=== PATIENT | female | born 2000 | race Caucasian/White ===

== ENCOUNTER 2024-01-09 06:04 | Inpatient (IN) ==
[2024-01-09] MEDS ORDERED: OXYTOCIN 30 UNITS/NSS 30 UNITS/500 ML BAG IV PRN (06:53)
[2024-01-09] MEDS ORDERED: LIDOCAINE 1% LOCAL 20 ML VIAL INFIL PRN (06:53)
[2024-01-09] MEDS ORDERED: ACETAMINOPHEN 325 MG TAB PO PRN (06:53)
[2024-01-09] MEDS ORDERED: CALCIUM CARBONATE 500 MG CHEWABLE TAB PO PRN (06:53)
--- NOTE | 2024-01-09 07:02 | History & Physical Report ---
Date of Service January 09, 2024 Assessment & Plan (1) Supervision of normal first : Plan: Primip at 37 4/7 weeks with documented SPROM and active labor start PCN G prophylaxis epidural when requested anticipate vaginal History of Present Illness Primary Care Provider: NO PCP Patient is a 23 yo female EDC 01/26/24 who presents at 37 4/7 weeks with SPROM and onset of labor. fluid was clear. complicated by (+) GBS status. she was also measuring size greater than dates and had growth scan at 36 weeks with an EFW of 78% and AC 81%. otherwise no other issues during . Allergies Allergy/AdvReac Type Severity Reaction Status Date / Time No Known Allergies Allergy Verified 01/09/24 06:21 Home Medications Medication Instructions Recorded Confirmed Type breast pump #1 ea 11/25/23 01/05/24 Rx vits no.124-ferrous fum 1 tab PO DAILY 01/09/24 01/09/24 History 27 mg iron-folic acid 800 mcg tablet ( Vitamin) Patient History Medical History Varicella vaccine Family History Denies family history of Ovarian cancer Prostate cancer Myocardial infarction Breast cancer Colorectal cancer Social History Smoking Status: Never smoker Do You Dip or Chew Tobacco: No; Hx Alcohol Use: No Hx Substance Use: No Preferred Language: [place]ian Communication Ability: Effective Production Control Supervisor Required: No Beliefs That Will Affect Care: None marital status: marital status details: Odilon Carpenter (30) [phone] Current Living Situation: Spouse Current Living Situation Comment: lives with spouse, no pets current occupational status: unemployed Other Information That Helps Us Care for You: No Feels Safe at Home: Yes Review of Systems All systems reviewed & are unremarkable except as noted in HPI & below Physical Exam Constitutional: WD/WN, vitals as above Psychiatric: A+Ox3, euthymic affect Genitourinary: OB Exam Abdomen: + vertex and + regular contractions (Q 3minutes) Manual OB Exam: + cervical dilation 3 cm, + cervical effacement 80%, + station -1 and + amniotic fluid (grossly ruptured) clear OB Exam Monitor Tracing: + external FHT monitor used, + external uterine monitor used, + category I and + normal FHT variability cervical exam by Mary Kay Anderson RN Results & Data Vital Signs (Past 12 Hours) Vital Signs Temp Pulse Resp BP 01/09/24 06:20 18 01/09/24 06:20 98.2 F 109 H 18 129/85 Code Status & VTE Plan VTE Prophylaxis Plan VTE Prophylaxis will be ordered: No Coding Level of Care Code 82842 INT INP/OBS CARE MIN Diagnoses Encounter for supervision of normal first in third trimester Z34.03 Trimester: third trimester (1) Supervision of normal first Trimester: third trimester Qualified Code(s): Z34.03 - Encounter for supervision of normal first , third trimester
[2024-01-09 07:30] LABS: Hematocrit (blood only) 35.7 % (37.0-47.0); Hemoglobin 12.1 g/dl (12.0-16.0); Mean Corpuscular Hemoglobin 29.6 pg (25.0-34.0); Mean Corpuscular Hgb Conc 33.9 g/dL (32.0-36.0); Mean Corpuscular Volume 87.3 fL (80.0-100.0); Mean Platelet Volume 9.6 fL (9.4-12.4); Platelet Count 190 K/uL (130-400); RDW Standard Deviation 40.5 fL (36.4-46.3); Red Blood Count 4.09 M/uL (4.20-5.40); White Blood Count 8.17 K/ul (4.8-10.8)
[2024-01-09] MEDS: LACTATED RINGER'S 1,000 ML IV PRN (07:43)
[2024-01-09] MEDS: PENICILLIN GK 6 MU in DEXTROSE 5% 250 ML IV STA (07:45)
[2024-01-09] MEDS: PENICILLIN GK 3 MU in DEXTROSE 5% 100 ML IV PRN (11:41)
--- NOTE | 2024-01-09 16:14 | Labor Progress Brief Note ---
Date of Service January 09, 2024 Subjective FHT Cat 1 [place] spaced SVE 5-6cm per RN Pt agreeable to start pitocin. Assessment & Plan Admission and Anticipated Discharge Date Admission Date: January 09, 2024 Results & Data Vital Signs (Past 12 Hours) Vital Signs Temp Pulse Resp BP 01/09/24 15:18 20 01/09/24 15:18 37.0 C 01/09/24 14:47 99 H 116/63 01/09/24 13:19 01/09/24 13:19 37.0 C 01/09/24 11:42 01/09/24 11:42 36.8 C 01/09/24 10:27 112 H 131/70 01/09/24 09:24 18 01/09/24 09:24 36.9 C 01/09/24 07:26 36.8 C 107 H 18 117/72 01/09/24 06:20 18 01/09/24 06:20 36.8 C 109 H 18 129/85 Coding Level of Care Code None
[2024-01-09] MEDS: OXYTOCIN 30 UNITS/NSS 30 UNITS/500 ML BAG IV PRN (16:47)
[2024-01-09] MEDS ORDERED: NALOXONE HCL 1 MG in SODIUM CHLORIDE 0.9% 1,000 ML IV PRN (18:24)
[2024-01-09] MEDS ORDERED: NALBUPHINE HCL INJ 10 MG/ML AMP IV PRN (18:24)
[2024-01-09] MEDS ORDERED: NALOXONE HCL 0.4 MG/1 ML VIAL/CARP IV PRN (18:24)
[2024-01-09] MEDS ORDERED: BUPIVACAINE 0.25% PF 30 ML VIAL EPI PRN (18:24)
[2024-01-09] MEDS ORDERED: LIDOCAINE 2% MPF LOCAL 5 ML VIAL EPI PRN (18:24)
[2024-01-09] MEDS ORDERED: ePHEDrine sulfate 50 MG/ML AMP IV PRN (18:24)
[2024-01-09] MEDS ORDERED: ROPIVACAINE 0.5% PF 5 MG/ML 20 ML VIAL EPI PRN (18:24)
[2024-01-09] MEDS ORDERED: SODIUM CHLORIDE 0.9% PF INJ 10 ML VIAL EPI PRN (18:24)
[2024-01-09] MEDS ORDERED: fentaNYL citrate PF 100 MCG/2 ML VIAL EPI PRN (18:24)
[2024-01-09] MEDS ORDERED: diphenhydrAMINE 50 MG/ML VIAL IV PRN (18:24)
--- NOTE | 2024-01-09 18:24 | Anesthesiology Consultation ---
Date of Service January 09, 2024 Assessment & Plan (1) Encounter for pre-operative examination: Chart Review Chart Review: Patient NOT seen in Pre Admission Testing and Acceptable Risk for Labor Epidural Consults Requested none History Height/Weight Height: 5 ft 2 in Weight: 98.43 kg Allergies Allergy/AdvReac Type Severity Reaction Status Date / Time No Known Allergies Allergy Verified 01/09/24 06:21 Medications Home Medications Medication Instructions Recorded Confirmed Last Taken breast pump #1 ea 11/25/23 01/05/24 Unknown vits no.124-ferrous fum 1 tab PO DAILY 01/09/24 01/09/24 01/08/24 27 mg iron-folic acid 800 mcg tablet ( Vitamin) Active Medications Generic Name Dose Route Start Last Admin Trade Name Freq PRN Reason Stop Dose Admin Lactated Ringer's 1,000 mls @ 125 mls/hr 01/09/24 06:53 01/09/24 16:49 Lr IV 01/11/24 06:52 125 mls/hr .Q8H PRN Infusion L&D Protocol Protocol Penicillin G Potassium 3 mu/ 106 mls @ 100 mls/hr 01/09/24 09:53 01/09/24 16:49 Dextrose IV 01/19/24 09:52 Infused Q4H PRN Infusion GBS(+) Until Delivery Oxytocin 30 units in 500 mls @ 3 mls/hr 01/09/24 15:52 01/09/24 17:25 Pitocin 30 Units/Nss IV 01/11/24 15:51 0.18 units/hr .Q24H PRN 3 mls/hr Labor Induction/Augmentation Titration Protocol 0.18 UNITS/HR Past Medical History Medical History Varicella vaccine Past Family History Family History Denies family history of Ovarian cancer Prostate cancer Myocardial infarction Breast cancer Colorectal cancer Social History Smoking Status: Never smoker Do You Dip or Chew Tobacco: No Hx Alcohol Use: No Hx Substance Use: No substance use type: does not use Physical Exam Vital Signs Last Vital Signs Temp 99.0 F 01/09/24 17:25 Pulse 102 H 01/09/24 17:55 Resp 20 01/09/24 17:25 BP 125/63 01/09/24 17:55 Testing Laboratory Results 01/09/24 07:11 Blood Type O Positive 01/09/24 07:11 Antibody Screen NEGATIVE 01/09/24 07:11
[2024-01-09] MEDS: fentaNYL citrate PF 100 MCG/2 ML VIAL ONE (18:49)
[2024-01-09] MEDS: SODIUM CHLORIDE 0.9% PF INJ 10 ML VIAL ONE (18:49)
[2024-01-09] MEDS: BUPIVACAINE 0.25% PF 30 ML VIAL ONE (18:50)
[2024-01-09] MEDS: LIDOCAINE 2%/EPINEPHRINE 1:200,000 20 ML PF ONE (18:50)
[2024-01-09] MEDS: fentANYL 2 MCG/ML BUPIVacaine 0.125%-NSS 100ML BAG ONE (18:50)
[2024-01-09] MEDS: SODIUM CHLORIDE 0.9% PF INJ 10 ML VIAL EPI STA (18:53)
[2024-01-09] MEDS: LIDOCAINE 2%/EPINEPHRINE 1:200,000 20 ML PF EPI STA (18:53)
[2024-01-09] MEDS: BUPIVACAINE 0.25% PF 30 ML VIAL EPI STA (18:53)
[2024-01-09] MEDS: fentaNYL citrate PF 100 MCG/2 ML VIAL EPI STA (18:53)
--- NOTE | 2024-01-09 19:46 | Labor Progress Brief Note ---
Date of Service January 09, 2024 Subjective Comfortable with epidural. FHT Cat 1 [place] Q 2-4 SVE 6.5cm/100/-1 Continue pitocin, continue labor. Assessment & Plan Admission and Anticipated Discharge Date Admission Date: January 09, 2024 Results & Data Vital Signs (Past 12 Hours) Vital Signs Temp Pulse Resp BP Pulse Ox 01/09/24 19:42 116/68 01/09/24 19:40 104 H 100 01/09/24 19:37 121 H 113/62 01/09/24 19:35 112 H 100 01/09/24 19:31 111 H 107/59 L 01/09/24 19:30 104 H 99 01/09/24 19:27 107 H 114/56 L 01/09/24 19:25 112 H 99 01/09/24 19:22 101 H 127/60 01/09/24 19:20 111 H 99 01/09/24 19:17 120 H 116/51 L 01/09/24 19:15 110 H 99 01/09/24 19:13 110 H 111/63 01/09/24 19:10 99 H 98 01/09/24 19:06 36.9 C 108 H 18 120/56 L 01/09/24 19:05 99 H 98 01/09/24 19:01 96 H 111/60 01/09/24 19:00 95 H 97 01/09/24 18:56 96 H 110/59 L 01/09/24 18:55 95 H 96 01/09/24 18:53 100 H 112/72 01/09/24 18:51 96 H 109/67 01/09/24 18:50 100 H 97 01/09/24 18:49 98 H 133/62 01/09/24 18:48 95 H 138/68 01/09/24 18:45 112 H 97 01/09/24 18:40 117 H 98 01/09/24 18:35 109 H 97 01/09/24 18:30 100 H 97 01/09/24 17:55 102 H 125/63 01/09/24 17:25 20 01/09/24 17:25 37.2 C 01/09/24 16:47 107 H 124/70 01/09/24 15:18 20 01/09/24 15:18 37.0 C 20 01/09/24 14:47 99 H 116/63 01/09/24 13:19 20 01/09/24 13:19 37.0 C 20 01/09/24 11:42 18 01/09/24 11:42 36.8 C 18 01/09/24 10:27 112 H 131/70 01/09/24 09:24 18 01/09/24 09:24 36.9 C 18 Coding Level of Care Code None
[2024-01-09] MEDS: ePHEDrine sulfate 50 MG/ML AMP ONE (19:59)
--- NOTE | 2024-01-10 00:44 | Labor Progress Brief Note ---
Date of Service January 10, 2024 Subjective Complete/0 station, FHT cat 1, [place] Q 3 Will allow to labor down and then when she feels urge, push for delivery. Assessment & Plan Admission and Anticipated Discharge Date Admission Date: January 09, 2024 Results & Data Vital Signs (Past 12 Hours) Vital Signs Temp Pulse Resp BP Pulse Ox 01/10/24 00:42 123 H 95/51 L 01/10/24 00:40 122 H 99 01/10/24 00:35 123 H 99 01/10/24 00:30 119 H 98 01/10/24 00:27 120 H 96/54 L 01/10/24 00:25 117 H 100 01/10/24 00:20 119 H 98 01/10/24 00:15 124 H 99 01/10/24 00:13 122 H 123/63 01/10/24 00:10 123 H 97 01/10/24 00:05 130 H 97 01/10/24 00:00 126 H 98 01/09/24 23:57 122 H 122/75 01/09/24 23:55 118 H 98 01/09/24 23:50 122 H 98 01/09/24 23:45 119 H 97 01/09/24 23:43 117 H 118/82 01/09/24 23:40 118 H 97 01/09/24 23:37 18 01/09/24 23:37 36.8 C 18 01/09/24 23:35 130 H 96 01/09/24 23:30 122 H 100 01/09/24 23:28 127 H 114/58 L 01/09/24 23:25 122 H 100 01/09/24 23:20 120 H 99 01/09/24 23:15 130 H 99 01/09/24 23:10 121 H 99 01/09/24 23:05 128 H 98 01/09/24 23:00 126 H 98 01/09/24 22:57 122 H 121/70 01/09/24 22:55 118 H 99 01/09/24 22:50 126 H 99 01/09/24 22:45 118 H 99 01/09/24 22:44 123 H 125/69 01/09/24 22:40 118 H 100 01/09/24 22:35 123 H 97 01/09/24 22:30 127 H 99 01/09/24 22:28 123 H 116/71 01/09/24 22:25 128 H 99 01/09/24 22:20 126 H 99 01/09/24 22:15 118 H 99 01/09/24 22:14 127 H 98/73 L 01/09/24 22:10 125 H 99 01/09/24 22:05 112 H 98 01/09/24 22:00 93 H 93 01/09/24 21:57 93 H 92/53 L 01/09/24 21:55 92 H 94 01/09/24 21:54 102 H 94 01/09/24 21:50 95 H 94 01/09/24 21:45 90 94 01/09/24 21:42 98 H 102/54 L 01/09/24 21:40 98 H 94 01/09/24 21:36 93 H 94 01/09/24 21:35 92 H 95 01/09/24 21:30 93 H 95 01/09/24 21:29 93 H 94 01/09/24 21:28 96 H 93/50 L 01/09/24 21:25 97 H 96 01/09/24 21:23 93 H 94 01/09/24 21:20 100 H 96 01/09/24 21:15 90 97 01/09/24 21:12 92 H 98/57 L 01/09/24 21:10 93 H 97 01/09/24 21:08 95 H 93 01/09/24 21:05 100 H 99 01/09/24 21:00 18 01/09/24 21:00 36.6 C 118 H 18 99 01/09/24 20:58 95 H 95/55 L 01/09/24 20:55 108 H 98 01/09/24 20:50 97 H 98 01/09/24 20:45 103 H 98 01/09/24 20:44 98 H 106/61 01/09/24 20:40 96 H 100 01/09/24 20:35 98 H 99 01/09/24 20:30 94 H 100 01/09/24 20:27 94 H 119/70 01/09/24 20:25 92 H 99 01/09/24 20:20 89 99 01/09/24 20:15 98 H 99 01/09/24 20:12 103 H 102/55 L 01/09/24 20:10 100 H 100 01/09/24 20:05 98 H 98 01/09/24 20:00 102 H 99 01/09/24 19:57 93 H 115/56 L 01/09/24 19:55 98 H 99 01/09/24 19:50 100 H 97 01/09/24 19:45 102 H 99 01/09/24 19:42 116/68 01/09/24 19:40 104 H 100 01/09/24 19:37 121 H 113/62 01/09/24 19:35 112 H 100 01/09/24 19:31 111 H 107/59 L 01/09/24 19:30 104 H 99 01/09/24 19:27 107 H 114/56 L 01/09/24 19:25 112 H 99 01/09/24 19:22 101 H 127/60 01/09/24 19:20 111 H 99 01/09/24 19:17 120 H 116/51 L 01/09/24 19:15 110 H 99 01/09/24 19:13 110 H 111/63 01/09/24 19:10 99 H 98 01/09/24 19:06 36.9 C 108 H 18 120/56 L 01/09/24 19:05 99 H 98 01/09/24 19:01 96 H 111/60 01/09/24 19:00 95 H 97 01/09/24 18:56 96 H 110/59 L 01/09/24 18:55 95 H 96 01/09/24 18:53 100 H 112/72 01/09/24 18:51 96 H 109/67 01/09/24 18:50 100 H 97 01/09/24 18:49 98 H 133/62 01/09/24 18:48 95 H 138/68 01/09/24 18:45 112 H 97 01/09/24 18:40 117 H 98 01/09/24 18:35 109 H 97 01/09/24 18:30 100 H 97 01/09/24 17:55 102 H 125/63 01/09/24 17:25 20 01/09/24 17:25 37.2 C 20 01/09/24 16:47 107 H 124/70 01/09/24 15:18 20 01/09/24 15:18 37.0 C 20 01/09/24 14:47 99 H 116/63 01/09/24 13:19 20 01/09/24 13:19 37.0 C 20 Coding Level of Care Code None
[2024-01-10] MEDS: fentANYL 2 MCG/ML BUPIVacaine 0.125%-NSS 100ML BAG EPI PRN (02:51)
--- NOTE | 2024-01-10 04:21 | Labor Progress Brief Note ---
Date of Service January 10, 2024 Subjective Patient has been pushing since 1:30a. station 3+. FHT Cat 1 [place] Q 2-6 Feels like position is OP. Will place peanut ball, allow her to rest for 30 min and then start pushing again. Assessment & Plan Admission and Anticipated Discharge Date Admission Date: January 09, 2024 Results & Data Vital Signs (Past 12 Hours) Vital Signs Temp Pulse Resp BP Pulse Ox 01/10/24 04:15 109 H 97 01/10/24 04:12 115 H 121/75 01/10/24 04:10 132 H 100 01/10/24 04:05 111 H 98 01/10/24 04:00 109 H 100 01/10/24 03:55 112 H 100 01/10/24 03:50 132 H 96 01/10/24 03:45 112 H 100 01/10/24 03:44 108 H 122/71 01/10/24 03:40 117 H 100 01/10/24 03:35 114 H 99 01/10/24 03:30 118 H 98 01/10/24 03:29 118 H 89/50 L 01/10/24 03:25 118 H 97 01/10/24 03:23 18 01/10/24 03:23 37.0 C 109 H 18 92 01/10/24 03:20 122 H 97 01/10/24 03:17 107 H 93 01/10/24 03:15 132 H 98 01/10/24 03:10 125 H 98 01/10/24 03:05 126 H 97 01/10/24 03:00 117 H 99 01/10/24 02:58 117 H 109/58 L 01/10/24 02:55 127 H 97 01/10/24 02:50 136 H 94 01/10/24 02:45 36.8 C 133 H 18 94 01/10/24 02:43 129 H 109/64 01/10/24 02:40 127 H 98 01/10/24 02:35 137 H 98 01/10/24 02:30 133 H 97 01/10/24 02:25 140 H 98 01/10/24 02:20 135 H 98 01/10/24 02:15 134 H 98 01/10/24 02:10 135 H 99 01/10/24 02:05 140 H 99 01/10/24 02:00 127 H 99 01/10/24 01:55 137 H 98 01/10/24 01:50 145 H 97 01/10/24 01:45 142 H 110/59 L 99 01/10/24 01:40 138 H 98 01/10/24 01:35 151 H 100 01/10/24 01:30 146 H 99 01/10/24 01:28 133 H 116/63 01/10/24 01:25 135 H 99 01/10/24 01:20 127 H 99 01/10/24 01:15 123 H 98 01/10/24 01:12 120 H 104/53 L 01/10/24 01:10 118 H 97 01/10/24 01:05 122 H 98 01/10/24 01:00 36.8 C 121 H 18 99 01/10/24 00:57 116 H 105/53 L 01/10/24 00:55 119 H 98 01/10/24 00:50 123 H 97 01/10/24 00:45 122 H 98 01/10/24 00:42 123 H 95/51 L 01/10/24 00:40 122 H 99 01/10/24 00:35 123 H 99 01/10/24 00:30 119 H 98 01/10/24 00:27 120 H 96/54 L 01/10/24 00:25 117 H 100 01/10/24 00:20 119 H 98 01/10/24 00:15 124 H 99 01/10/24 00:13 122 H 123/63 01/10/24 00:10 123 H 97 01/10/24 00:05 130 H 97 01/10/24 00:00 126 H 98 01/09/24 23:57 122 H 122/75 01/09/24 23:55 118 H 98 01/09/24 23:50 122 H 98 01/09/24 23:45 119 H 97 01/09/24 23:43 117 H 118/82 01/09/24 23:40 118 H 97 01/09/24 23:37 18 01/09/24 23:37 36.8 C 18 01/09/24 23:35 130 H 96 01/09/24 23:30 122 H 100 01/09/24 23:28 127 H 114/58 L 01/09/24 23:25 122 H 100 01/09/24 23:20 120 H 99 01/09/24 23:15 130 H 99 01/09/24 23:10 121 H 99 01/09/24 23:05 128 H 98 01/09/24 23:00 126 H 98 01/09/24 22:57 122 H 121/70 01/09/24 22:55 118 H 99 01/09/24 22:50 126 H 99 01/09/24 22:45 118 H 99 01/09/24 22:44 123 H 125/69 01/09/24 22:40 118 H 100 01/09/24 22:35 123 H 97 01/09/24 22:30 127 H 99 01/09/24 22:28 123 H 116/71 01/09/24 22:25 128 H 99 01/09/24 22:20 126 H 99 01/09/24 22:15 118 H 99 01/09/24 22:14 127 H 98/73 L 01/09/24 22:10 125 H 99 01/09/24 22:05 112 H 98 01/09/24 22:00 93 H 93 01/09/24 21:57 93 H 92/53 L 01/09/24 21:55 92 H 94 01/09/24 21:54 102 H 94 01/09/24 21:50 95 H 94 01/09/24 21:45 90 94 01/09/24 21:42 98 H 102/54 L 01/09/24 21:40 98 H 94 01/09/24 21:36 93 H 94 01/09/24 21:35 92 H 95 01/09/24 21:30 93 H 95 01/09/24 21:29 93 H 94 01/09/24 21:28 96 H 93/50 L 01/09/24 21:25 97 H 96 01/09/24 21:23 93 H 94 01/09/24 21:20 100 H 96 01/09/24 21:15 90 97 01/09/24 21:12 92 H 98/57 L 01/09/24 21:10 93 H 97 01/09/24 21:08 95 H 93 01/09/24 21:05 100 H 99 01/09/24 21:00 18 01/09/24 21:00 36.6 C 118 H 18 99 01/09/24 20:58 95 H 95/55 L 01/09/24 20:55 108 H 98 01/09/24 20:50 97 H 98 01/09/24 20:45 103 H 98 01/09/24 20:44 98 H 106/61 01/09/24 20:40 96 H 100 01/09/24 20:35 98 H 99 01/09/24 20:30 94 H 100 01/09/24 20:27 94 H 119/70 01/09/24 20:25 92 H 99 01/09/24 20:20 89 99 01/09/24 20:15 98 H 99 01/09/24 20:12 103 H 102/55 L 01/09/24 20:10 100 H 100 01/09/24 20:05 98 H 98 01/09/24 20:00 102 H 99 01/09/24 19:57 93 H 115/56 L 01/09/24 19:55 98 H 99 01/09/24 19:50 100 H 97 01/09/24 19:45 102 H 99 01/09/24 19:42 116/68 01/09/24 19:40 104 H 100 01/09/24 19:37 121 H 113/62 01/09/24 19:35 112 H 100 01/09/24 19:31 111 H 107/59 L 01/09/24 19:30 104 H 99 01/09/24 19:27 107 H 114/56 L 01/09/24 19:25 112 H 99 01/09/24 19:22 101 H 127/60 01/09/24 19:20 111 H 99 01/09/24 19:17 120 H 116/51 L 01/09/24 19:15 110 H 99 01/09/24 19:13 110 H 111/63 01/09/24 19:10 99 H 98 01/09/24 19:06 36.9 C 108 H 18 120/56 L 01/09/24 19:05 99 H 98 01/09/24 19:01 96 H 111/60 01/09/24 19:00 95 H 97 01/09/24 18:56 96 H 110/59 L 01/09/24 18:55 95 H 96 01/09/24 18:53 100 H 112/72 01/09/24 18:51 96 H 109/67 09/23/24 18:50 100 H 97 01/09/24 18:49 98 H 133/62 01/09/24 18:48 95 H 138/68 01/09/24 18:45 112 H 97 01/09/24 18:40 117 H 98 01/09/24 18:35 109 H 97 01/09/24 18:30 100 H 97 01/09/24 17:55 102 H 125/63 01/09/24 17:25 20 01/09/24 17:25 37.2 C 20 01/09/24 16:47 107 H 124/70 Coding Level of Care Code None
--- NOTE | 2024-01-10 06:44 | Labor Progress Brief Note ---
Date of Service January 10, 2024 Subjective Feeling ctx. FHT Cat 1 [place] Q 2-4 min SVE 10/100/+3, has made some progress since last check 30 min ago. Is at 3 hour pushing mami. Discussed continued pushing vs . She wants to avoid if at all possible, and wants to continue pushing. Assessment & Plan Admission and Anticipated Discharge Date Admission Date: January 09, 2024 Results & Data Vital Signs (Past 12 Hours) Vital Signs Temp Pulse Resp BP Pulse Ox 01/10/24 06:40 109 H 99 01/10/24 06:35 121 H 98 01/10/24 06:30 123 H 99 01/10/24 06:27 127 H 116/72 01/10/24 06:25 135 H 100 01/10/24 06:20 133 H 100 01/10/24 06:15 133 H 97 01/10/24 06:13 123 H 124/68 01/10/24 06:10 132 H 98 01/10/24 06:05 147 H 89 L 01/10/24 06:00 128 H 99 01/10/24 05:57 123 H 141/81 H 01/10/24 05:56 127 H 90 01/10/24 05:55 124 H 98 01/10/24 05:50 136 H 98 01/10/24 05:45 124 H 100 01/10/24 05:42 136 H 114/57 L 01/10/24 05:40 125 H 100 01/10/24 05:35 139 H 100 01/10/24 05:30 37.1 C 151 H 18 98 01/10/24 05:25 141 H 100 01/10/24 05:20 135 H 100 01/10/24 05:15 137 H 98 01/10/24 05:12 122 H 117/79 01/10/24 05:10 103 H 97 01/10/24 05:05 106 H 97 01/10/24 05:00 111 H 96 01/10/24 04:58 107 H 127/83 01/10/24 04:55 100 H 96 01/10/24 04:50 91 H 95 01/10/24 04:45 93 H 96 01/10/24 04:42 107 H 111/58 L 01/10/24 04:40 93 H 97 01/10/24 04:35 94 H 98 01/10/24 04:30 93 H 97 01/10/24 04:27 101 H 117/61 01/10/24 04:25 104 H 96 01/10/24 04:20 110 H 99 01/10/24 04:15 109 H 97 01/10/24 04:12 115 H 121/75 01/10/24 04:10 132 H 100 01/10/24 04:05 111 H 98 01/10/24 04:00 109 H 100 01/10/24 03:55 112 H 100 01/10/24 03:50 132 H 96 01/10/24 03:45 112 H 100 01/10/24 03:44 108 H 122/71 01/10/24 03:40 117 H 100 01/10/24 03:35 114 H 99 01/10/24 03:30 118 H 98 01/10/24 03:29 118 H 89/50 L 01/10/24 03:25 118 H 97 01/10/24 03:23 18 01/10/24 03:23 37.0 C 109 H 18 92 01/10/24 03:20 122 H 97 01/10/24 03:17 107 H 93 01/10/24 03:15 132 H 98 01/10/24 03:10 125 H 98 01/10/24 03:05 126 H 97 01/10/24 03:00 117 H 99 01/10/24 02:58 117 H 109/58 L 01/10/24 02:55 127 H 97 01/10/24 02:50 136 H 94 01/10/24 02:45 36.8 C 133 H 18 94 01/10/24 02:43 129 H 109/64 01/10/24 02:40 127 H 98 01/10/24 02:35 137 H 98 01/10/24 02:30 133 H 97 01/10/24 02:25 140 H 98 01/10/24 02:20 135 H 98 01/10/24 02:15 134 H 98 01/10/24 02:10 135 H 99 01/10/24 02:05 140 H 99 01/10/24 02:00 127 H 99 01/10/24 01:55 137 H 98 01/10/24 01:50 145 H 97 01/10/24 01:45 142 H 110/59 L 99 01/10/24 01:40 138 H 98 01/10/24 01:35 151 H 100 01/10/24 01:30 146 H 99 01/10/24 01:28 133 H 116/63 01/10/24 01:25 135 H 99 01/10/24 01:20 127 H 99 01/10/24 01:15 123 H 98 01/10/24 01:12 120 H 104/53 L 01/10/24 01:10 118 H 97 01/10/24 01:05 122 H 98 01/10/24 01:00 36.8 C 121 H 18 99 01/10/24 00:57 116 H 105/53 L 01/10/24 00:55 119 H 98 01/10/24 00:50 123 H 97 01/10/24 00:45 122 H 98 01/10/24 00:42 123 H 95/51 L 01/10/24 00:40 122 H 99 01/10/24 00:35 123 H 99 01/10/24 00:30 119 H 98 01/10/24 00:27 120 H 96/54 L 01/10/24 00:25 117 H 100 01/10/24 00:20 119 H 98 01/10/24 00:15 124 H 99 01/10/24 00:13 122 H 123/63 01/10/24 00:10 123 H 97 01/10/24 00:05 130 H 97 01/10/24 00:00 126 H 98 01/09/24 23:57 122 H 122/75 01/09/24 23:55 118 H 98 01/09/24 23:50 122 H 98 01/09/24 23:45 119 H 97 01/09/24 23:43 117 H 118/82 01/09/24 23:40 118 H 97 01/09/24 23:37 18 01/09/24 23:37 36.8 C 18 01/09/24 23:35 130 H 96 01/09/24 23:30 122 H 100 01/09/24 23:28 127 H 114/58 L 01/09/24 23:25 122 H 100 01/09/24 23:20 120 H 99 01/09/24 23:15 130 H 99 01/09/24 23:10 121 H 99 01/09/24 23:05 128 H 98 01/09/24 23:00 126 H 98 01/09/24 22:57 122 H 121/70 01/09/24 22:55 118 H 99 01/09/24 22:50 126 H 99 01/09/24 22:45 118 H 99 01/09/24 22:44 123 H 125/69 01/09/24 22:40 118 H 100 01/09/24 22:35 123 H 97 01/09/24 22:30 127 H 99 01/09/24 22:28 123 H 116/71 01/09/24 22:25 128 H 99 01/09/24 22:20 126 H 99 01/09/24 22:15 118 H 99 01/09/24 22:14 127 H 98/73 L 01/09/24 22:10 125 H 99 01/09/24 22:05 112 H 98 01/09/24 22:00 93 H 93 01/09/24 21:57 93 H 92/53 L 01/09/24 21:55 92 H 94 01/09/24 21:54 102 H 94 01/09/24 21:50 95 H 94 01/09/24 21:45 90 94 01/09/24 21:42 98 H 102/54 L 01/09/24 21:40 98 H 94 01/09/24 21:36 93 H 94 01/09/24 21:35 92 H 95 01/09/24 21:30 93 H 95 01/09/24 21:29 93 H 94 01/09/24 21:28 96 H 93/50 L 01/09/24 21:25 97 H 96 01/09/24 21:23 93 H 94 01/09/24 21:20 100 H 96 01/09/24 21:15 90 97 01/09/24 21:12 92 H 98/57 L 01/09/24 21:10 93 H 97 01/09/24 21:08 95 H 93 01/09/24 21:05 100 H 99 01/09/24 21:00 18 01/09/24 21:00 36.6 C 118 H 18 99 01/09/24 20:58 95 H 95/55 L 01/09/24 20:55 108 H 98 01/09/24 20:50 97 H 98 01/09/24 20:45 103 H 98 01/09/24 20:44 98 H 106/61 01/09/24 20:40 96 H 100 01/09/24 20:35 98 H 99 01/09/24 20:30 94 H 100 01/09/24 20:27 94 H 119/70 01/09/24 20:25 92 H 99 01/09/24 20:20 89 99 01/09/24 20:15 98 H 99 01/09/24 20:12 103 H 102/55 L 01/09/24 20:10 100 H 100 01/09/24 20:05 98 H 98 01/09/24 20:00 102 H 99 01/09/24 19:57 93 H 115/56 L 01/09/24 19:55 98 H 99 01/09/24 19:50 100 H 97 01/09/24 19:45 102 H 99 01/09/24 19:42 116/68 01/09/24 19:40 104 H 100 01/09/24 19:37 121 H 113/62 01/09/24 19:35 112 H 100 01/09/24 19:31 111 H 107/59 L 01/09/24 19:30 104 H 99 01/09/24 19:27 107 H 114/56 L 01/09/24 19:25 112 H 99 01/09/24 19:22 101 H 127/60 01/09/24 19:20 111 H 99 01/09/24 19:17 120 H 116/51 L 01/09/24 19:15 110 H 99 01/09/24 19:13 110 H 111/63 01/09/24 19:10 99 H 98 01/09/24 19:06 36.9 C 108 H 18 120/56 L 01/09/24 19:05 99 H 98 01/09/24 19:01 96 H 111/60 01/09/24 19:00 95 H 97 01/09/24 18:56 96 H 110/59 L 01/09/24 18:55 95 H 96 01/09/24 18:53 100 H 112/72 01/09/24 18:51 96 H 109/67 01/09/24 18:50 100 H 97 01/09/24 18:49 98 H 133/62 01/09/24 18:48 95 H 138/68 09/24 18:45 112 H 97 Coding Level of Care Code None
--- NOTE | 2024-01-10 07:42 | Labor Progress Brief Note ---
Date of Service January 10, 2024 Subjective Feeling urge to push with ctx. FHT Cat 1 [place] Q 2-5 Discussed that she is 4h of pushing time at this point. Discussed recommendation for delivery by at 4h of pushing if no delivery. Patient declines at this time - feels like the baby is right there and if she is just able to push a bit longer she would be able to get it out. Suspect OP presentation, have attempted rotation of baby. Bladder drained, increased pitocin. Given continued Cat 1 tracing and patient motivation for vaginal delivery, will continue pushing at this point, in hopes that increasing pitocin will improve frequency and strength of contractions. Assessment & Plan Admission and Anticipated Discharge Date Admission Date: January 09, 2024 Results & Data Vital Signs (Past 12 Hours) Vital Signs Temp Pulse Resp BP Pulse Ox 01/10/24 07:35 131 H 100 01/10/24 07:30 128 H 100 01/10/24 07:28 132 H 92 01/10/24 07:26 129 H 113/75 01/10/24 07:25 118 H 97 01/10/24 07:20 114 H 100 01/10/24 07:15 141 H 100 01/10/24 07:11 117 H 117/73 01/10/24 07:10 124 H 97 01/10/24 07:05 143 H 95 01/10/24 07:00 124 H 99 01/10/24 06:57 18 01/10/24 06:57 36.8 C 120 H 18 109/66 01/10/24 06:55 120 H 100 01/10/24 06:50 126 H 100 01/10/24 06:45 114 H 99 01/10/24 06:42 113 H 111/64 01/10/24 06:41 111 H 92 01/10/24 06:40 109 H 99 01/10/24 06:35 121 H 98 01/10/24 06:30 123 H 99 01/10/24 06:27 127 H 116/72 01/10/24 06:25 135 H 100 01/10/24 06:20 133 H 100 01/10/24 06:15 133 H 97 01/10/24 06:13 123 H 124/68 01/10/24 06:10 132 H 98 01/10/24 06:05 147 H 89 L 01/10/24 06:00 128 H 99 01/10/24 05:57 123 H 141/81 H 01/10/24 05:56 127 H 90 01/10/24 05:55 124 H 98 01/10/24 05:50 136 H 98 01/10/24 05:45 124 H 100 01/10/24 05:42 136 H 114/57 L 01/10/24 05:40 125 H 100 01/10/24 05:35 139 H 100 01/10/24 05:30 37.1 C 151 H 18 98 01/10/24 05:25 141 H 100 01/10/24 05:20 135 H 100 01/10/24 05:15 137 H 98 01/10/24 05:12 122 H 117/79 01/10/24 05:10 103 H 97 01/10/24 05:05 106 H 97 01/10/24 05:00 111 H 96 01/10/24 04:58 107 H 127/83 01/10/24 04:55 100 H 96 01/10/24 04:50 91 H 95 01/10/24 04:45 93 H 96 01/10/24 04:42 107 H 111/58 L 01/10/24 04:40 93 H 97 01/10/24 04:35 94 H 98 01/10/24 04:30 93 H 97 01/10/24 04:27 101 H 117/61 01/10/24 04:25 104 H 96 01/10/24 04:20 110 H 99 01/10/24 04:15 109 H 97 01/10/24 04:12 115 H 121/75 01/10/24 04:10 132 H 100 01/10/24 04:05 111 H 98 01/10/24 04:00 109 H 100 01/10/24 03:55 112 H 100 01/10/24 03:50 132 H 96 01/10/24 03:45 112 H 100 01/10/24 03:44 108 H 122/71 01/10/24 03:40 117 H 100 01/10/24 03:35 114 H 99 01/10/24 03:30 118 H 98 01/10/24 03:29 118 H 89/50 L 01/10/24 03:25 118 H 97 01/10/24 03:23 18 01/10/24 03:23 37.0 C 109 H 18 92 01/10/24 03:20 122 H 97 01/10/24 03:17 107 H 93 01/10/24 03:15 132 H 98 01/10/24 03:10 125 H 98 01/10/24 03:05 126 H 97 01/10/24 03:00 117 H 99 01/10/24 02:58 117 H 109/58 L 01/10/24 02:55 127 H 97 01/10/24 02:50 136 H 94 01/10/24 02:45 36.8 C 133 H 18 94 01/10/24 02:43 129 H 109/64 01/10/24 02:40 127 H 98 01/10/24 02:35 137 H 98 01/10/24 02:30 133 H 97 01/10/24 02:25 140 H 98 01/10/24 02:20 135 H 98 01/10/24 02:15 134 H 98 01/10/24 02:10 135 H 99 01/10/24 02:05 140 H 99 01/10/24 02:00 127 H 99 01/10/24 01:55 137 H 98 01/10/24 01:50 145 H 97 01/10/24 01:45 142 H 110/59 L 99 01/10/24 01:40 138 H 98 01/10/24 01:35 151 H 100 01/10/24 01:30 146 H 99 01/10/24 01:28 133 H 116/63 01/10/24 01:25 135 H 99 01/10/24 01:20 127 H 99 01/10/24 01:15 123 H 98 01/10/24 01:12 120 H 104/53 L 01/10/24 01:10 118 H 97 01/10/24 01:05 122 H 98 01/10/24 01:00 36.8 C 121 H 18 99 01/10/24 00:57 116 H 105/53 L 01/10/24 00:55 119 H 98 01/10/24 00:50 123 H 97 01/10/24 00:45 122 H 98 01/10/24 00:42 123 H 95/51 L 01/10/24 00:40 122 H 99 01/10/24 00:35 123 H 99 01/10/24 00:30 119 H 98 01/10/24 00:27 120 H 96/54 L 01/10/24 00:25 117 H 100 01/10/24 00:20 119 H 98 01/10/24 00:15 124 H 99 01/10/24 00:13 122 H 123/63 01/10/24 00:10 123 H 97 01/10/24 00:05 130 H 97 01/10/24 00:00 126 H 98 01/09/24 23:57 122 H 122/75 01/09/24 23:55 118 H 98 01/09/24 23:50 122 H 98 01/09/24 23:45 119 H 97 01/09/24 23:43 117 H 118/82 01/09/24 23:40 118 H 97 01/09/24 23:37 18 01/09/24 23:37 36.8 C 18 01/09/24 23:35 130 H 96 01/09/24 23:30 122 H 100 01/09/24 23:28 127 H 114/58 L 01/09/24 23:25 122 H 100 01/09/24 23:20 120 H 99 01/09/24 23:15 130 H 99 01/09/24 23:10 121 H 99 01/09/24 23:05 128 H 98 01/09/24 23:00 126 H 98 01/09/24 22:57 122 H 121/70 01/09/24 22:55 118 H 99 01/09/24 22:50 126 H 99 01/09/24 22:45 118 H 99 01/09/24 22:44 123 H 125/69 01/09/24 22:40 118 H 100 01/09/24 22:35 123 H 97 01/09/24 22:30 127 H 99 01/09/24 22:28 123 H 116/71 01/09/24 22:25 128 H 99 01/09/24 22:20 126 H 99 01/09/24 22:15 118 H 99 01/09/24 22:14 127 H 98/73 L 01/09/24 22:10 125 H 99 01/09/24 22:05 112 H 98 01/09/24 22:00 93 H 93 01/09/24 21:57 93 H 92/53 L 01/09/24 21:55 92 H 94 09/23/24 21:54 102 H 94 24 21:50 95 H 94 24 21:45 90 94 24 21:42 98 H 102/54 L 01/09/24 21:40 98 H 94 24 21:36 93 H 94 24 21:35 92 H 95 24 21:30 93 H 95 24 21:29 93 H 94 24 21:28 96 H 93/50 L 01/09/24 21:25 97 H 96 24 21:23 93 H 94 24 21:20 100 H 96 24 21:15 90 97 01/09/24 21:12 92 H 98/57 L 01/09/24 21:10 93 H 97 01/09/24 21:08 95 H 93 01/09/24 21:05 100 H 99 24 21:00 18 01/09/24 21:00 36.6 C 118 H 18 99 01/09/24 20:58 95 H 95/55 L 01/09/24 20:55 108 H 98 01/09/24 20:50 97 H 98 24 20:45 103 H 98 24 20:44 98 H 106/61 01/09/24 20:40 96 H 100 24 20:35 98 H 99 24 20:30 94 H 100 24 20:27 94 H 119/70 01/09/24 20:25 92 H 99 24 20:20 89 99 24 20:15 98 H 99 24 20:12 103 H 102/55 L 01/09/24 20:10 100 H 100 24 20:05 98 H 98 24 20:00 102 H 99 24 19:57 93 H 115/56 L 24 19:55 98 H 99 01/08/24 19:50 100 H 97 24 19:45 102 H 99 24 19:42 116/68 01/09/24 19:40 104 H 100 Coding Level of Care Code None
--- NOTE | 2024-01-10 08:15 | History & Physical Bridge Note ---
Date of Service January 10, 2024 History & Physical Bridge Note I have examined the patient, reviewed the History & Physical and in the interval since the performance of the History & Physical I have noted the following changes of clinical significance: Patient has now been pushing 4+ hours, no improvement at this point of station. Discussed recommendation to proceed to . Patient is agreeable. Reviewed consent, questions answered. Will move to OR for section for arrest of descent.
[2024-01-10] MEDS ORDERED: LIDOCAINE 2%/EPINEPHRINE 1:200,000 20 ML PF ONE (08:28)
[2024-01-10] MEDS ORDERED: fentaNYL citrate PF 100 MCG/2 ML VIAL ONE (08:28)
[2024-01-10] MEDS: ACETAMINOPHEN 500 MG TAB PO SCH (08:31)
[2024-01-10] MEDS: ceFAZolin 2000MG 2,000 MG/15 ML SYR IV SCH (08:33)
[2024-01-10] MEDS ORDERED: OXYTOCIN 10 UNITS/ML VIAL ONE (08:37)
[2024-01-10] MEDS: AZITHROMYCIN 500 MG in DEXTROSE 5% 250 ML IV SCH (08:37)
--- NOTE | 2024-01-10 08:56 | Communication Note ---
Date of Service: January 10, 2024 Received signout from prior on-call provider. Has been pushing for 4+ hours with initial progress but no further progress for a few hours at this point and recommended for CS. Introduced myself to patient as on-coming provider with prior provider as well and assessed station and in agreement. Consent previously signed and I briefly reviewed as well and answered questions to best of my ability. Antibiotics already ordered and partner assist called
[2024-01-10] MEDS ORDERED: MoRPHine SULFATE PF 1 MG/ML 10 ML AMP/VIAL ONE (09:18)
[2024-01-10] MEDS ORDERED: HYDROmorphone INJ 0.5 MG/0.5 ML SYR IV PRN (09:26)
[2024-01-10] MEDS ORDERED: ePHEDrine sulfate 50 MG/ML AMP IV PRN (09:26)
[2024-01-10] MEDS ORDERED: ONDANSETRON INJ 2 MG/ML 2 ML VIAL IV PRN (09:26)
[2024-01-10] MEDS ORDERED: LACTATED RINGER'S 500 ML IV PRN (09:26)
[2024-01-10] MEDS ORDERED: diphenhydrAMINE 50 MG/ML VIAL IV PRN (09:26)
[2024-01-10] MEDS ORDERED: NALBUPHINE HCL INJ 10 MG/ML AMP IV PRN (09:26)
[2024-01-10] MEDS ORDERED: NALOXONE HCL 1 MG in SODIUM CHLORIDE 0.9% 1,000 ML IV PRN (09:26)
[2024-01-10] MEDS ORDERED: NALOXONE HCL 0.4 MG/1 ML VIAL/CARP IV PRN (09:26)
[2024-01-10] MEDS ORDERED: NALOXONE HCL 0.08 MG in SYRINGE 1.8 ML IV PRN (09:26)
[2024-01-10] MEDS ORDERED: NO NARCOTICS OR SEDATIVES SCH (09:30)
[2024-01-10] MEDS ORDERED: DC INTRASPINAL MORPHINE SCH (09:30)
[2024-01-10] MEDS ORDERED: BENZOCAINE 20% SPRY 85 APPLN/85 GM CAN EXT PRN (10:05)
[2024-01-10] MEDS ORDERED: HYDROCORTISONE ACETATE 25 MG SUPP PR PRN (10:05)
[2024-01-10] MEDS ORDERED: MAGNESIUM HYDROXIDE SUSP 30 ML UDC PO PRN (10:05)
[2024-01-10] MEDS ORDERED: CALCIUM CARBONATE 500 MG CHEWABLE TAB PO PRN (10:05)
--- NOTE | 2024-01-10 10:06 | Operative Report ---
Post Operative Report Pre & Post Diagnosis Operation Date: 01/10/24 08:50 Pre-operative diagnosis: Single intrauterine at 37 5/7 wga SROM GBS+ Arrest of descent Post-operative diagnosis: Same, delivered I identified the patient and participated in the time-out.: Yes Procedure Operation Date: 01/10/24 08:50 Primary Low Transverse Section Surgeon Winnie Doherty MD Occupational Analyst MD Karl; MD Reza Quantitative Blood Loss (QBL) 431 Findings Consistent with Post-Op Diagnosis Viable male with APGARs of 8 and 9 at 1 and 5 minutes, respectively. head deeply impacted in the pelvis. Normal appearing uterus, bilateral fallopian tubes and ovaries. Mcnulty catheter blood tinged prior to initiation of procedure - did get slightly bloodier just after extraction of head but returned to just slightly blood tinged and continuing to improve by end of procedure. Fluids UOP 1200cc by mcnulty catheter - prior to procedure, urine was already blood tinged. Specimens Placenta, cord blood Drains Mcnulty catheter draining tinged urine but continuing to clear Anesthesia Type Labor Epidural Complications none Disposition Accompanied Patient To Recovery: Yes Disposition: L&D Indications 23 yo at 37 5/7 wga presented with srom one day ago. She was started on pitocin for augmentation and received an epidural for pain control. She continued to progress to complete and began pushing at approximately 130am. She initially made progress however was felt to be OP at approx the 3 hour mami. She took a 30min break and resumed pushing however did not progress beyond the +3 and was not a candidate for vacuum delivery. She was counseled regarding management options by myself and prior on-call provider and recommended for above procedure, pt agreeable. Description of Procedure The patient was taken to the operating room after consents were ensured. The patient was properly identified. Epidural anesthesia had been bolused without difficulty. The patient was placed in a dorsal supine position with left lateral tilt, then prepped and draped in normal sterile fashion. Surgical time out was performed. Antibiotics were given for prophylaxis. Anesthesia was tested to ensure adequate surgical levels. Pfannenstiel skin incision was performed and carried down to the underlying fascia with a knife. The fascia was then nicked in the midline and extended laterally with pickups and Bolanos scissors. Superior portion of the fascia was grasped with Kochers x2 and elevated off the underlying rectus muscles using blunt dissection. Inferior portion of the fascia was then grasped with Vin clamps x2 and also elevated off the underlying muscles with blunt dissection. Midline was identified. The peritoneum was then entered and extended to provide adequate room for delivery of baby. A hand was inserted into the abdomen, uterus was noted to be clear of adhesions. Bladder blade was inserted, bladder flap was created in the usual fashion. A low transverse uterine incision was made in the uterus and extended bluntly in a superior to inferior fashion. Clear fluid noted at time of entry into uterus. head was grasped and elevated through the hysterotomy in an atraumatic fashion. The baby delivered in CHRISTOPHER position, no nuchal cord. Remainder of the body delivered without incident. Nose and mouth were bulb suctioned on the surgical field. The cord was double clamped and cut, baby was handed off to awaiting pediatrics staff. Cord segment and blood were obtained. Placenta was then expressed from the uterus. The uterus was exteriorized. Several passes were made inside the uterus to remove the remaining membranes. Attention was then turned to the hysterotomy where a slight left hysterotomy extension was noted, this was then closed with a running locked suture of 0 Vicryl on a CTX needle. An imbricating layer was then performed using 0- Monocryl. There was noted to be good hemostasis. The posterior cul-de-sac was then inspected and cleaned of clot and debris. The hysterotomy was again inspected and noted to be hemostatic. The uterus was returned to the abdomen. The right and left pericolic gutters were cleaned of all clot and debris. The hysterotomy was again noted to be hemostatic. Space of Retzius was noted to be hemostatic. The fascia was then closed with a running suture of 0 Vicryl on a CT1 needle. Subcutaneous tissue was copiously irrigated and noted to be hemostatic. Subcutaneous tissue was re-approximated using 2-0 plain gut. The skin was then closed with a running suture of 3-0 Monocryl in a subcuticular fashion. At termination of the procedure, fundal pressure was applied and a moderate amount of lochia was expressed. Pressure dressing was applied to the patient. She tolerated the procedure well. All sponge, needle, instrument counts were correct x 2. I attest to the content of the Intraoperative Record and any orders documented therein. Any exceptions are noted below. OB Procedure Charges 50954
--- NOTE | 2024-01-10 10:23 | Anesthesiology Progress Note ---
Date of Service January 10, 2024 Anesthesia Post Procedure Vital Signs Vital Signs: Temp Pulse Resp BP Pulse Ox 01/10/24 10:17 103 H 98 01/10/24 10:13 97 H 117/57 L 01/10/24 10:12 98 H 100 01/10/24 10:07 99 H 100 01/10/24 10:02 111 H 132/77 100 01/10/24 08:55 112 H 99 01/10/24 08:50 115 H 100 01/10/24 08:48 123 H 124/71 01/10/24 08:45 125 H 99 01/10/24 08:43 126 H 113/66 01/10/24 08:41 133 H 89 L 01/10/24 08:40 132 H 128/78 99 01/10/24 08:37 130 H 204/100 H 01/10/24 08:35 131 H 100 01/10/24 08:30 125 H 99 01/10/24 08:28 110 H 90 01/10/24 08:27 114 H 118/90 01/10/24 08:25 111 H 98 01/10/24 08:20 95 H 100 01/10/24 08:15 108 H 100 01/10/24 08:12 117 H 124/86 01/10/24 08:10 117 H 100 01/10/24 08:05 138 H 99 01/10/24 08:00 131 H 100 01/10/24 07:58 129 H 151/63 H 01/10/24 07:55 120 H 99 01/10/24 07:51 134 H 91 01/10/24 07:50 131 H 100 01/10/24 07:45 131 H 99 01/10/24 07:43 124 H 84 L 01/10/24 07:42 122 H 121/66 01/10/24 07:40 122 H 100 01/10/24 07:35 131 H 100 01/10/24 07:30 128 H 100 01/10/24 07:28 132 H 92 01/10/24 07:26 129 H 113/75 01/10/24 07:25 118 H 97 01/10/24 07:20 114 H 100 01/10/24 07:15 141 H 100 01/10/24 07:11 117 H 117/73 01/10/24 07:10 124 H 97 01/10/24 07:05 143 H 95 01/10/24 07:00 124 H 99 01/10/24 06:57 18 01/10/24 06:57 36.8 C 120 H 18 109/66 01/10/24 06:55 120 H 100 01/10/24 06:50 126 H 100 01/10/24 06:45 114 H 99 01/10/24 06:42 113 H 111/64 01/10/24 06:41 111 H 92 01/10/24 06:40 109 H 99 01/10/24 06:35 121 H 98 01/10/24 06:30 123 H 99 01/10/24 06:27 127 H 116/72 01/10/24 06:25 135 H 100 01/10/24 06:20 133 H 100 01/10/24 06:15 133 H 97 01/10/24 06:13 123 H 124/68 01/10/24 06:10 132 H 98 01/10/24 06:05 147 H 89 L 01/10/24 06:00 128 H 99 01/10/24 05:57 123 H 141/81 H 01/10/24 05:56 127 H 90 01/10/24 05:55 124 H 98 01/10/24 05:50 136 H 98 01/10/24 05:45 124 H 100 01/10/24 05:42 136 H 114/57 L 01/10/24 05:40 125 H 100 01/10/24 05:35 139 H 100 01/10/24 05:30 37.1 C 151 H 18 98 01/10/24 05:25 141 H 100 01/10/24 05:20 135 H 100 01/10/24 05:15 137 H 98 01/10/24 05:12 122 H 117/79 01/10/24 05:10 103 H 97 01/10/24 05:05 106 H 97 01/10/24 05:00 111 H 96 01/10/24 04:58 107 H 127/83 01/10/24 04:55 100 H 96 01/10/24 04:50 91 H 95 01/10/24 04:45 93 H 96 01/10/24 04:42 107 H 111/58 L 01/10/24 04:40 93 H 97 01/10/24 04:35 94 H 98 01/10/24 04:30 93 H 97 01/10/24 04:27 101 H 117/61 01/10/24 04:25 104 H 96 01/10/24 04:20 110 H 99 01/10/24 04:15 109 H 97 01/10/24 04:12 115 H 121/75 01/10/24 04:10 132 H 100 01/10/24 04:05 111 H 98 01/10/24 04:00 109 H 100 01/10/24 03:55 112 H 100 01/10/24 03:50 132 H 96 01/10/24 03:45 112 H 100 01/10/24 03:44 108 H 122/71 01/10/24 03:40 117 H 100 01/10/24 03:35 114 H 99 01/10/24 03:30 118 H 98 01/10/24 03:29 118 H 89/50 L 01/10/24 03:25 118 H 97 01/10/24 03:23 18 01/10/24 03:23 37.0 C 109 H 18 92 01/10/24 03:20 122 H 97 01/10/24 03:17 107 H 93 01/10/24 03:15 132 H 98 01/10/24 03:10 125 H 98 01/10/24 03:05 126 H 97 01/10/24 03:00 117 H 99 01/10/24 02:58 117 H 109/58 L 01/10/24 02:55 127 H 97 01/10/24 02:50 136 H 94 01/10/24 02:45 36.8 C 133 H 18 94 01/10/24 02:43 129 H 109/64 01/10/24 02:40 127 H 98 01/10/24 02:35 137 H 98 01/10/24 02:30 133 H 97 01/10/24 02:25 140 H 98 01/10/24 02:20 135 H 98 01/10/24 02:15 134 H 98 01/10/24 02:10 135 H 99 01/10/24 02:05 140 H 99 01/10/24 02:00 127 H 99 01/10/24 01:55 137 H 98 01/10/24 01:50 145 H 97 01/10/24 01:45 142 H 110/59 L 99 01/10/24 01:40 138 H 98 01/10/24 01:35 151 H 100 01/10/24 01:30 146 H 99 01/10/24 01:28 133 H 116/63 01/10/24 01:25 135 H 99 01/10/24 01:20 127 H 99 01/10/24 01:15 123 H 98 01/10/24 01:12 120 H 104/53 L 01/10/24 01:10 118 H 97 01/10/24 01:05 122 H 98 01/10/24 01:00 36.8 C 121 H 18 99 01/10/24 00:57 116 H 105/53 L 01/10/24 00:55 119 H 98 01/10/24 00:50 123 H 97 01/10/24 00:45 122 H 98 01/10/24 00:42 123 H 95/51 L 01/10/24 00:40 122 H 99 01/10/24 00:35 123 H 99 01/10/24 00:30 119 H 98 01/10/24 00:27 120 H 96/54 L 01/10/24 00:25 117 H 100 01/10/24 00:20 119 H 98 01/10/24 00:15 124 H 99 01/10/24 00:13 122 H 123/63 01/10/24 00:10 123 H 97 01/10/24 00:05 130 H 97 01/10/24 00:00 126 H 98 01/09/24 23:57 122 H 122/75 01/09/24 23:55 118 H 98 01/09/24 23:50 122 H 98 01/09/24 23:45 119 H 97 01/09/24 23:43 117 H 118/82 01/09/24 23:40 118 H 97 01/09/24 23:37 18 01/09/24 23:37 36.8 C 18 01/09/24 23:35 130 H 96 01/09/24 23:30 122 H 100 01/09/24 23:28 127 H 114/58 L 01/09/24 23:25 122 H 100 01/09/24 23:20 120 H 99 01/09/24 23:15 130 H 99 01/09/24 23:10 121 H 99 01/09/24 23:05 128 H 98 01/09/24 23:00 126 H 98 01/09/24 22:57 122 H 121/70 01/09/24 22:55 118 H 99 01/09/24 22:50 126 H 99 01/09/24 22:45 118 H 99 01/09/24 22:44 123 H 125/69 01/09/24 22:40 118 H 100 01/09/24 22:35 123 H 97 01/09/24 22:30 127 H 99 01/09/24 22:28 123 H 116/71 01/09/24 22:25 128 H 99 01/09/24 22:20 126 H 99 01/09/24 22:15 118 H 99 01/09/24 22:14 127 H 98/73 L 01/09/24 22:10 125 H 99 01/09/24 22:05 112 H 98 01/09/24 22:00 93 H 93 01/09/24 21:57 93 H 92/53 L 01/09/24 21:55 92 H 94 01/09/24 21:54 102 H 94 01/09/24 21:50 95 H 94 01/09/24 21:45 90 94 01/09/24 21:42 98 H 102/54 L 01/09/24 21:40 98 H 94 01/09/24 21:36 93 H 94 01/09/24 21:35 92 H 95 01/09/24 21:30 93 H 95 01/09/24 21:29 93 H 94 01/09/24 21:28 96 H 93/50 L 01/09/24 21:25 97 H 96 01/09/24 21:23 93 H 94 01/09/24 21:20 100 H 96 01/09/24 21:15 90 97 01/09/24 21:12 92 H 98/57 L 01/09/24 21:10 93 H 97 01/09/24 21:08 95 H 93 01/09/24 21:05 100 H 99 01/09/24 21:00 18 01/09/24 21:00 36.6 C 118 H 18 99 01/09/24 20:58 95 H 95/55 L 01/09/24 20:55 108 H 98 01/09/24 20:50 97 H 98 01/09/24 20:45 103 H 98 01/09/24 20:44 98 H 106/61 01/09/24 20:40 96 H 100 01/09/24 20:35 98 H 99 01/09/24 20:30 94 H 100 01/09/24 20:27 94 H 119/70 01/09/24 20:25 92 H 99 01/09/24 20:20 89 99 01/09/24 20:15 98 H 99 01/09/24 20:12 103 H 102/55 L 01/09/24 20:10 100 H 100 01/09/24 20:05 98 H 98 01/09/24 20:00 102 H 99 01/09/24 19:57 93 H 115/56 L 01/09/24 19:55 98 H 99 01/09/24 19:50 100 H 97 01/09/24 19:45 102 H 99 01/09/24 19:42 116/68 01/09/24 19:40 104 H 100 01/09/24 19:37 121 H 113/62 01/09/24 19:35 112 H 100 01/09/24 19:31 111 H 107/59 L 01/09/24 19:30 104 H 99 01/09/24 19:27 107 H 114/56 L 01/09/24 19:25 112 H 99 01/09/24 19:22 101 H 127/60 01/09/24 19:20 111 H 99 01/09/24 19:17 120 H 116/51 L 01/09/24 19:15 110 H 99 01/09/24 19:13 110 H 111/63 01/09/24 19:10 99 H 98 01/09/24 19:06 36.9 C 108 H 18 120/56 L 01/09/24 19:05 99 H 98 01/09/24 19:01 96 H 111/60 01/09/24 19:00 95 H 97 01/09/24 18:56 96 H 110/59 L 01/09/24 18:55 95 H 96 01/09/24 18:53 100 H 112/72 01/09/24 18:51 96 H 109/67 01/09/24 18:50 100 H 97 01/09/24 18:49 98 H 133/62 01/09/24 18:48 95 H 138/68 01/09/24 18:45 112 H 97 01/09/24 18:40 117 H 98 01/09/24 18:35 109 H 97 01/09/24 18:30 100 H 97 01/09/24 17:55 102 H 125/63 01/09/24 17:25 20 01/09/24 17:25 37.2 C 01/09/24 16:47 107 H 124/70 01/09/24 15:18 01/09/24 15:18 37.0 C 01/09/24 14:47 99 H 116/63 01/09/24 13:19 01/09/24 13:19 37.0 C 01/09/24 11:42 01/09/24 11:42 36.8 C 01/09/24 10:27 112 H 131/70 Pain Intensity Lower Medial Back: Pain Intensity: 7 Notes Mental Status: alert / awake / arousable Patient Amnestic to Procedure: Yes Nausea / Vomiting: adequately controlled Pain: adequately controlled Airway Patency, RR, SpO2: stable & adequate BP & HR: stable & adequate Hydration State: stable & adequate Neuraxial Anesthesia: was administered and sensory block is resolving Anesthetic Complications: no major complications apparent Notes: epidural cath removed with tip intact
[2024-01-10] MEDS: CITRIC ACID/SODIUM CITRATE 15 ML UDC PO SCH (10:36)
[2024-01-10] MEDS: LACTATED RINGER'S 1,000 ML IV SCH ×2 (12:22→22:01)
[2024-01-10] MEDS: MoRPHine SULFATE PF 1 MG/ML 10 ML AMP/VIAL EPI ONE (12:22)
[2024-01-10] MEDS: OXYTOCIN 20 UNITS/LR 1,002 ML IV SCH (12:26)
[2024-01-10] MEDS: KETOROLAC 30 MG/ML VIAL IV PRN (12:26)
[2024-01-10] MEDS: SIMETHICONE 80 MG CHEW PO SCH (13:12)
[2024-01-10] MEDS ORDERED: Nursing to Pharmacy Communication SCH (14:30)
[2024-01-10] MEDS: IBUPROFEN 600 MG TAB PO SCH (18:41)
[2024-01-10] MEDS: ACETAMINOPHEN 325 MG TAB PO SCH (18:41)
[2024-01-10] MEDS: LACTATED RINGER'S 500 ML IV ONE (21:08)
[2024-01-10] MEDS: DOCUSATE SODIUM 100 MG CAP PO SCH (21:09)
[2024-01-11] MEDS ORDERED: HYDROmorphone INJ 0.5 MG/0.5 ML SYR IV PRN (03:28)
[2024-01-11] MEDS ORDERED: ONDANSETRON INJ 2 MG/ML 2 ML VIAL IV PRN (03:28)
[2024-01-11] MEDS ORDERED: PROMETHAZINE 12.5 MG/50.5 ML BAG IV PRN (03:28)
[2024-01-11] MEDS ORDERED: diphenhydrAMINE 50 MG/ML VIAL IV PRN (03:28)
[2024-01-11] MEDS ORDERED: diphenhydrAMINE Capsule 25 MG CAP PO PRN (03:28)
[2024-01-11] MEDS: DIPHTHER/TETAN/PERTUS Vaccine (Tdap, Adol/Adult) 0.5mL IM ONE (04:47)
[2024-01-11 06:38] LABS: Basophils # (auto) 0.01 K/uL (0.00-0.20); Basophils % (auto) 0.1 %; Eosinophils # (auto) 0.07 K/uL (0.00-0.50); Eosinophils % (auto) 0.8 %; Hematocrit (blood only) 29.9 % (37.0-47.0); Hemoglobin 10.4 g/dl (12.0-16.0); Immature Granulocytes # (auto) 0.04 K/uL (0.01-0.20); Immature Granulocytes % (auto) 0.4 %; Lymphocytes # (auto) 1.66 K/uL (1.20-3.40); Lymphocytes % (auto) 17.8 %; Mean Corpuscular Hemoglobin 30.5 pg (25.0-34.0); Mean Corpuscular Hgb Conc 34.8 g/dL (32.0-36.0); Mean Corpuscular Volume 87.7 fL (80.0-100.0); Mean Platelet Volume 9.6 fL (9.4-12.4); Monocytes % (auto) 6.5 %; Neutrophils # (auto) 6.92 K/uL (1.40-6.50); Neutrophils % (auto) 74.4 %; Platelet Count 180 K/uL (130-400); RDW Coefficient of Variation 13.2 % (11.5-14.5); RDW Standard Deviation 42.6 fL (36.4-46.3); Red Blood Count 3.41 M/uL (4.20-5.40)
--- NOTE | 2024-01-11 07:14 | Obstetrical Progress Note ---
Date of Service January 11, 2024 Assessment & Plan (1) delivery delivered: Plan: 1st POD following LT Section for NPOL due to NDOH in 23 yr P1. Both mom and baby doing well. Continue care as per protocol. Suggested moisturizer for her palms. Seems itching is due to dryness. She is not icteric, no rashes elsewhere. Even if it is obs priti, no active intervention required at this point. Itching should go away in few weeks. Encouraged nursing with mother's milk. Encouraged ambulation. Encouraged deep breathing. Mcnulty's can be removed today; urine clear. Plan for Discharge tomorrow Admission and Anticipated Discharge Date Admission Date: January 09, 2024 Supervising Physician Co-Signing Physician Notes Resident Physician Supervision Note: I interviewed and examined the patient. Discussed with Dr. Cobb and agree with findings and plan as documented in the note. Any exceptions or clarifications are listed here: POD1 s/p pLTCS, doing well. Voiding via mcnulty, urine now clear. VSS, exam benign and wnl, incision c/d/i. Will remove mcnulty now, left overnight due to extended pushing time and subsequent CS. Was tachycardic overnight but asymptomatic, normal now. Continue routine care Documented By: Winnie Doherty MD Subjective 1st POD following LT Section for NPOL due to NDOH in 23 years P1 at 37+5 week POG. Complains of itching BL palms, no rashes, no itching elsewhere Otherwise Both mom and baby doing well. Mom Lying comfortable on bed. Pain: Mild, intermittent, manageable on painkillers. Lochia: Moderate Diet: Regular OB diet Gas: Not aware of passing, but no abdominal distension Peeing: Under Mcnulty's Urine output issue overnight, but improved now. Ambulation: to Bathroom/ Corridor without any complication Vitals: STABLE this AM( Pulse trended down to normal), BP: 96/67 Answered her queries. Review of Systems Review of Systems: No SOB, chest pain, leg pain No dizziness, headache, palpitation No Blurring of vision , fever Physical Exam Physical Exam: General: Alert and oriented. No acute distress. CVS: S1 S2+ No murmurs, regular rhythm. Respiratory: CTA bilaterally. No rhonchi, wheezes, or crackles. No increased work of breathing. Abdomen: Bowel sound +. Soft, nontender Uterus: Fundus firm and palpable few cm below the umbilicus. Bandage removed. Incision site looks healthy: Dry, No swelling, Erythema Lower extremities: No LE edema. No deep calf pain. Results & Data Vital Signs (Past 12 Hours) Vital Signs Temp Pulse Resp BP Pulse Ox O2 Del Method 01/11/24 03:50 18 97 01/11/24 03:50 36.4 C L 87 18 96/67 L 97 Room Air 01/11/24 02:50 18 96 01/11/24 01:35 20 100 01/11/24 00:35 19 99 01/10/24 23:30 20 98 01/10/24 23:15 36.7 C 103 H 20 119/78 98 Room Air 01/10/24 22:25 18 99 01/10/24 21:15 20 98 01/10/24 20:05 18 97 01/10/24 20:05 36.6 C 97 H 18 116/77 97 Room Air 01/10/24 19:20 20 100 Resident Activity Tracking Resident Involvement: Resident Care Provided Care Provided: OB Delivery
[2024-01-11] MEDS: SODIUM CHLORIDE 0.9% 1,000 ML IV SCH (07:35)
[2024-01-11] MEDS: FERROUS SULFATE 325 MG TAB PO SCH (09:00)
[2024-01-11] MEDS: PRENATAL VITAMIN 1 TAB PO SCH (09:00)
[2024-01-11] MEDS ORDERED: bisacodyL 5 MG TABEC PO SCH (20:00)
[2024-01-11] MEDS: SENNA 8.6 MG TAB PO PRN (20:51)
[2024-01-12] MEDS: oxyCODONE HCL IR 5 MG TAB (IMMEDIATE RELEASE) PO PRN (01:13)
[2024-01-12 06:33] LABS: Hematocrit (blood only) 29.3 % (37.0-47.0); Hemoglobin 9.7 g/dl (12.0-16.0)
--- NOTE | 2024-01-12 08:02 | Obstetrical Progress Note ---
Date of Service January 12, 2024 Assessment & Plan (1) delivery delivered: Plan: 2nd POD following LT Section for NPOL due to NDOH in 23 yr P1. Both mom and baby doing well. Abdomen is gassy distended; Encouraged ambulation and fluids. Will add Miralax on discharge. Encouraged nursing with mother's milk. Encouraged deep breathing. Plan for Discharge TODAY Admission and Anticipated Discharge Date Admission Date: January 09, 2024 Supervising Physician Co-Signing Physician Notes Patient seen with resident and agree with the above findings and plan. Mild abdominal distention noted. Recommended bowel regiment, ambulation and to avoid large volume food intake until passing gas more consistently. Routine care Subjective 2nd POD following LT Section for NPOL due to NDOH in 22 years P1 at 37+5 week POG. Both mom and baby doing well. Mom Lying comfortable on bed. Pain: Mild, intermittent, manageable on painkillers. Lochia: Moderate Diet: Regular OB diet Gas: Passing gas, abdomen mildly distended Peeing: Ok, after mcnulty's out- passed normal. Ambulation: to Bathroom/ Corridor without any complication Vitals: STABLE this AM Answered her queries. Review of Systems Review of Systems: No SOB, chest pain, leg pain No dizziness, headache, palpitation No Blurring of vision , fever Physical Exam Physical Exam: General: Alert and oriented. No acute distress. CVS: S1 S2+ No murmurs, regular rhythm. Respiratory: CTA bilaterally. No rhonchi, wheezes, or crackles. No increased work of breathing. Abdomen: Bowel sound +. Soft, nontender Uterus: Fundus firm and palpable few cm below the umbilicus. Incision site looks healthy: Dry, No swelling, Erythema Lower extremities: No LE edema. No deep calf pain. Results & Data Vital Signs (Past 12 Hours) Vital Signs Temp Pulse Resp BP Pulse Ox O2 Del Method 01/11/24 23:13 36.6 C 78 18 114/78 98 Room Air Resident Activity Tracking Resident Involvement: Resident Care Provided Care Provided: OB Delivery
[2024-01-12] MEDS ORDERED: bisacodyL 10 MG SUPP PR PRN (10:05)
[2024-01-12] MEDS: POLYETHYLENE (MIRALAX) 17 GM PACK PO SCH (12:50)
[2024-01-12] MEDS: ACETAMINOPHEN 325 MG TAB PO PRN (18:39)
[2024-01-12] MEDS: IBUPROFEN 600 MG TAB PO PRN (18:41)
[2024-01-13 03:48] VITALS: RESP 18; TEMP 97.7
--- NOTE | 2024-01-13 07:38 | Obstetrical Progress Note ---
Date of Service January 13, 2024 Assessment & Plan (1) delivery delivered: Plan: 3rd POD following LT Section for NPOL due to NDOH in 23 yr P1 at 37 weeks. Both mom and baby doing well. Abdomen distension getting better; Encouraged ambulation and fluids. Will add Miralax on discharge. Encouraged nursing with mother's milk. Encouraged deep breathing. Plan: Discharge today Admission and Anticipated Discharge Date Admission Date: January 09, 2024 Supervising Physician Co-Signing Physician Notes Resident Physician Supervision Note: I interviewed and examined the patient. Discussed with Dr. Cobb and agree with findings and plan as documented in the note. Any exceptions or clarifications are listed here: [None] Documented By: Afua Velez MD, FACOG Subjective 3rd POD following LT Section for NPOL due to NDOH in 22 years P1 at 37+5 week POG. Both mom and baby doing well. Mom Lying comfortable on bed. Pain: Mild, intermittent, manageable on painkillers. Lochia: Mild Diet: Regular OB diet Gas: Passing gas, Bowel movement twice Peeing: Normal Ambulation:Corridor without any complication Vitals: STABLE this AM Answered her queries. Review of Systems Review of Systems: No SOB, chest pain, leg pain No dizziness, headache, palpitation No Blurring of vision , fever Physical Exam Physical Exam: General: Alert and oriented. No acute distress. CVS: S1 S2+ No murmurs, regular rhythm. Respiratory: CTA bilaterally. No rhonchi, wheezes, or crackles. No increased work of breathing. Abdomen: Bowel sound +. Soft, nontender Uterus: Fundus firm and palpable midway between umbilicus and Symphysis pubis. Incision site looks healthy: Dry, No swelling, Erythema Lower extremities: No LE edema. No deep calf pain. Results & Data Vital Signs (Past 12 Hours) Vital Signs Temp Pulse Resp BP Pulse Ox O2 Del Method 01/13/24 03:48 36.5 C 84 18 130/82 98 Room Air Resident Activity Tracking Resident Involvement: Resident Care Provided Care Provided: OB Delivery
[2024-01-13 10:11] VITALS: O2SAT 99
[2024-01-13 11:18] VITALS: BP 96/67; PULSE 87
== END 2024-01-13 14:05 | disposition home or self-care (01) | DRG 788 ==
LOC: OPB 06:04 → 4S1 06:06 → 4E2 01-10 14:58